=== PATIENT | male | born 1980 | race Caucasian/White ===

== ENCOUNTER → 2020-05-09 | Outpatient (CLI) | payer OTHER | LOC: ZCOL.LAB 22:47 | DX: U07.1 COVID-19 (principal) ==

== ENCOUNTER → 2020-05-10 | Outpatient (CLI) | payer OTHER | LOC: ZCOL.LAB 03:21 | DX: U07.1 COVID-19 (principal) ==

== ENCOUNTER → 2021-11-10 | Outpatient (CLI) | payer OTHER | LOC: COL.RAD 12:30 | DX: R51.9 Headache, unspecified (principal) ==